=== PATIENT | male | born 1950 | race Two or more races ===

== ENCOUNTER → 2017-07-19 | Outpatient (CLI) | payer MEDICARE, BC ==
[~2017-07-19] MED LIST: AMBIEN10 MG PO; AMOXICILLIN; DOXAZOSIN MESYLA4 MG PO; METFORMIN HCL500 MG PO; RAPAFLO8 MG PO; TOVIAZ8 MG PO
--- NOTE | 2017-07-19 18:11 | Diagnostic Imaging Report ---
TECHNIQUE: Magnetic resonance imaging of the LEFT KNEE was performed WITHOUT injected contrast. HISTORY: Pain, twisted COMPARISON: MRI of the left knee February 19, 2013 FINDINGS: LIGAMENTS AND TENDONS: ACL: Severe intrasubstance degeneration with mild laxity. PCL: Intact Collateral ligaments: Intact Iliotibial band: Unremarkable Popliteal tendon: Intact Extensor mechanism: Intact JOINT: Menisci: Medial: Mildly increased degenerative tearing and attenuation of the body and posterior horn. Persistent peripheral extrusion of the body. Lateral: Mildly increased degenerative tearing and attenuation of the anterior horn and free margin of the body with associated peripheral extrusion. Articular Cartilage: Medial Compartment: Increased full-thickness erosion of the weightbearing cartilage. Lateral Compartment: Increased erosion of the weightbearing cartilage, now with full-thickness portions. Patellofemoral Compartment: Low to intermediate grade erosion. Joint Fluid: Synovitis with large associated joint effusion. BONES: No focal or infiltrative bone marrow replacing abnormality. No acute fracture. SOFT TISSUES: Otherwise, unremarkable. IMPRESSION: 1. Mildly progressed tricompartmental degenerative changes, including degenerative tearing of the menisci. 2. Remote partial anterior cruciate ligament tear with associated prominent intrasubstance degeneration, relatively stable. Signed by: Dr. Maxwell Paulson D.O., M.M.M. on 07/19/2017 6:07 PM
--- NOTE | 2017-07-19 18:31 | Diagnostic Imaging Report ---
PROCEDURE:KNEE THREE VIEWS BILATERAL COMPARISON:None. INDICATIONS:BILATERAL KNEE PAIN FINDINGS: Normal mineralization. Status post total right knee replacement, with intact hardware, which show satisfactory alignment. No lytic or blastic lesions. No suprapatellar effusion. 8mm peripherally calcified structure in the soft tissues above the quadriceps tendon, only seen in the lateral view, which may represent a phlebolith versus sequela of prior injury/trauma CONCLUSION: No acute abnormalities. Intact hardware and satisfactory alignment Broderick Chamorro M.D. Dictated by: Broderick Chamorro M.D. on 07/19/2017 at 18:30 Electronically approved by: Broderick Chamorro M.D. on 07/19/2017 at 18:30
== END ==
LOC: MRI 16:59
PROVIDERS: ATTEND Internal Medicine
DX: S83.242A Other tear of medial meniscus, current injury, left knee, initial encounter (principal)

== ENCOUNTER 2017-08-23 13:30 | Outpatient (RCR) | payer MEDICARE, BC | END 2017-09-01 | LOC: PT 13:30 | PROVIDERS: ATTEND Internal Medicine | DX: M17.0 Bilateral primary osteoarthritis of knee (principal); M54.5 Low back pain | CPT/HCPCS: 97010; 97110 ×4; 97112; 97139; 97140 ×2; 97162; G0283; G8978; G8979 ==

== ENCOUNTER → 2017-10-01 | Outpatient (RCR) | payer MEDICARE, BC | LOC: PT 10:59 | PROVIDERS: ATTEND Orthopaedic Surgery | DX: Z96.652 Presence of left artificial knee joint (principal); M25.562 Pain in left knee; M17.0 Bilateral primary osteoarthritis of knee | CPT/HCPCS: 97140; 97164; G8978; G8979 ==

== ENCOUNTER 2017-10-30 15:30 | Outpatient (RCR) | payer MEDICARE, BC | END 2017-11-01 | LOC: PT 15:30 | PROVIDERS: ATTEND Orthopaedic Surgery | DX: Z96.652 Presence of left artificial knee joint (principal); Z47.1 Aftercare following joint replacement surgery; M17.12 Unilateral primary osteoarthritis, left knee; M25.562 Pain in left knee; M25.462 Effusion, left knee; M25.662 Stiffness of left knee, not elsewhere classified; R53.1 Weakness; R26.89 Other abnormalities of gait and mobility; R26.81 Unsteadiness on feet | CPT/HCPCS: 97139 ==

== ENCOUNTER 2017-11-06 15:45 | Outpatient (RCR) | payer MEDICARE, BC | END 2017-12-01 | LOC: PT 15:45 | PROVIDERS: ATTEND Orthopaedic Surgery | DX: Z96.652 Presence of left artificial knee joint (principal); Z47.1 Aftercare following joint replacement surgery; M17.12 Unilateral primary osteoarthritis, left knee; M25.562 Pain in left knee; M25.662 Stiffness of left knee, not elsewhere classified; M25.462 Effusion, left knee; R60.9 Edema, unspecified; R26.89 Other abnormalities of gait and mobility; R53.1 Weakness | CPT/HCPCS: 97110 ×3; 97112; 97139; G0283; G8978; G8979 ==

== ENCOUNTER → 2018-01-01 | Outpatient (RCR) | payer MEDICARE, BC | LOC: PT 15:39 | PROVIDERS: ATTEND Orthopaedic Surgery | DX: Z96.652 Presence of left artificial knee joint (principal); Z47.1 Aftercare following joint replacement surgery; M17.12 Unilateral primary osteoarthritis, left knee; M25.562 Pain in left knee; M25.662 Stiffness of left knee, not elsewhere classified; R53.1 Weakness; R26.81 Unsteadiness on feet | CPT/HCPCS: 97139 ==

== ENCOUNTER 2018-01-24 15:30 | Outpatient (RCR) | payer MEDICARE, BC | END 2018-02-01 | LOC: PT 15:30 | PROVIDERS: ATTEND Orthopaedic Surgery | DX: Z96.652 Presence of left artificial knee joint (principal); Z47.1 Aftercare following joint replacement surgery; M17.12 Unilateral primary osteoarthritis, left knee; M25.562 Pain in left knee; M25.662 Stiffness of left knee, not elsewhere classified; M25.462 Effusion, left knee; R53.1 Weakness; R26.81 Unsteadiness on feet | CPT/HCPCS: 97110 ×3; 97112 ×2; G8978; G8979 ==

== ENCOUNTER 2018-02-26 16:00 | Outpatient (RCR) | payer MEDICARE, BC | END 2018-03-03 | LOC: PT 16:00 | PROVIDERS: ATTEND Orthopaedic Surgery | DX: Z96.652 Presence of left artificial knee joint (principal); Z47.1 Aftercare following joint replacement surgery; M17.12 Unilateral primary osteoarthritis, left knee; M25.562 Pain in left knee; M25.462 Effusion, left knee; M25.662 Stiffness of left knee, not elsewhere classified; R53.1 Weakness; R26.81 Unsteadiness on feet | CPT/HCPCS: 97110; 97112; 97140; G8978; G8979 ==

== ENCOUNTER 2018-03-21 15:31 | Outpatient (RCR) | payer MEDICARE, BC | END 2018-04-03 | LOC: PT 15:31 | PROVIDERS: ATTEND Internal Medicine | DX: Z96.652 Presence of left artificial knee joint (principal); Z47.1 Aftercare following joint replacement surgery; M17.12 Unilateral primary osteoarthritis, left knee; M25.562 Pain in left knee; M25.462 Effusion, left knee; M25.662 Stiffness of left knee, not elsewhere classified; R53.1 Weakness; R26.81 Unsteadiness on feet ==

== ENCOUNTER 2020-12-24 15:00 | Outpatient (RCR) | payer MEDICARE, BC | END 2021-01-01 | LOC: PT 15:00 | PROVIDERS: ATTEND Internal Medicine | DX: R26.9 Unspecified abnormalities of gait and mobility (principal); W19.XXXA Unspecified fall, initial encounter ==

== ENCOUNTER → 2021-02-01 | Outpatient (RCR) | payer MEDICARE, BC | LOC: PT 01-04 15:11 | PROVIDERS: ATTEND Internal Medicine | DX: M62.81 Muscle weakness (generalized) (principal); M25.552 Pain in left hip; M25.551 Pain in right hip; R26.89 Other abnormalities of gait and mobility ==

== ENCOUNTER 2021-02-17 15:34 | Outpatient (RCR) | payer MEDICARE, BC | END 2021-03-03 | LOC: PT 15:34 | PROVIDERS: ATTEND Internal Medicine | DX: R53.1 Weakness (principal); M25.552 Pain in left hip; M25.551 Pain in right hip; M25.562 Pain in left knee; Z91.81 History of falling ==

== ENCOUNTER 2021-03-30 14:00 | Outpatient (RCR) | payer MEDICARE, BC | END 2021-04-03 | LOC: PT 14:00 | PROVIDERS: ATTEND Internal Medicine | DX: M62.81 Muscle weakness (generalized) (principal); M25.852 Other specified joint disorders, left hip; M25.851 Other specified joint disorders, right hip; M25.862 Other specified joint disorders, left knee; R26.9 Unspecified abnormalities of gait and mobility ==

== ENCOUNTER 2021-04-21 15:00 | Outpatient (RCR) | payer MEDICARE, BC | END 2021-05-03 | LOC: PT 15:00 | PROVIDERS: ATTEND Internal Medicine | DX: M25.852 Other specified joint disorders, left hip (principal); M25.851 Other specified joint disorders, right hip; M25.862 Other specified joint disorders, left knee; R26.9 Unspecified abnormalities of gait and mobility; M62.81 Muscle weakness (generalized) ==

== ENCOUNTER 2021-05-17 16:01 | Outpatient (RCR) | payer MEDICARE, BC | END 2021-06-03 | LOC: PT 16:01 | PROVIDERS: ATTEND Internal Medicine | DX: M53.2X7 Spinal instabilities, lumbosacral region (principal); R53.1 Weakness; M76.31 Iliotibial band syndrome, right leg; R26.81 Unsteadiness on feet; R26.9 Unspecified abnormalities of gait and mobility ==

== ENCOUNTER 2023-03-23 09:59 | Outpatient (RCR) | payer MEDICARE, BC | END 2023-04-03 | LOC: PT 09:59 | PROVIDERS: ATTEND Internal Medicine | DX: M76.31 Iliotibial band syndrome, right leg (principal); M53.2X7 Spinal instabilities, lumbosacral region; M53.3 Sacrococcygeal disorders, not elsewhere classified; R26.2 Difficulty in walking, not elsewhere classified; R53.1 Weakness; Z91.81 History of falling ==

== ENCOUNTER 2023-04-05 10:52 | Outpatient (RCR) | payer MEDICARE, BC | END 2023-05-03 | LOC: PT 10:52 | PROVIDERS: ATTEND Internal Medicine | DX: R26.2 Difficulty in walking, not elsewhere classified (principal); R53.1 Weakness; M76.31 Iliotibial band syndrome, right leg; M53.2X7 Spinal instabilities, lumbosacral region; M53.3 Sacrococcygeal disorders, not elsewhere classified; Z91.81 History of falling ==

== ENCOUNTER 2023-11-20 10:38 | Outpatient (RCR) | payer MEDICARE, BC | END 2023-12-02 | LOC: PT 10:38 | PROVIDERS: ATTEND Orthopaedic Surgery Hand Surgery | DX: M19.011 Primary osteoarthritis, right shoulder (principal); M25.511 Pain in right shoulder ==

== ENCOUNTER 2023-12-24 11:00 | Outpatient (RCR) | payer MEDICARE, BC | END 2024-01-02 | LOC: PT 11:00 | PROVIDERS: ATTEND Orthopaedic Surgery Hand Surgery | DX: M25.511 Pain in right shoulder (principal); M19.011 Primary osteoarthritis, right shoulder; M75.01 Adhesive capsulitis of right shoulder ==

== ENCOUNTER 2024-02-01 11:00 | Outpatient (RCR) | payer MEDICARE, BC | END 2024-02-02 | LOC: PT 11:00 | PROVIDERS: ATTEND Orthopaedic Surgery Hand Surgery | DX: M25.511 Pain in right shoulder (principal); M19.011 Primary osteoarthritis, right shoulder; M75.41 Impingement syndrome of right shoulder ==

== ENCOUNTER 2024-02-20 11:00 | Outpatient (RCR) | payer MEDICARE, BC | END 2024-03-03 | LOC: PT 11:00 | PROVIDERS: ATTEND Orthopaedic Surgery Hand Surgery | DX: M19.011 Primary osteoarthritis, right shoulder (principal); M25.511 Pain in right shoulder; M75.01 Adhesive capsulitis of right shoulder ==

== ENCOUNTER 2024-04-01 11:00 | Outpatient (RCR) | payer BC, MEDICARE | END 2024-04-03 | LOC: PT 11:00 | PROVIDERS: ATTEND Orthopaedic Surgery Hand Surgery | DX: M19.011 Primary osteoarthritis, right shoulder (principal); M75.01 Adhesive capsulitis of right shoulder; M25.511 Pain in right shoulder ==

== ENCOUNTER 2024-04-17 15:00 | Outpatient (RCR) | payer MEDICARE, BC | END 2024-05-03 | LOC: PT 15:00 | PROVIDERS: ATTEND Orthopaedic Surgery Hand Surgery | DX: M19.011 Primary osteoarthritis, right shoulder (principal); M75.01 Adhesive capsulitis of right shoulder; M25.511 Pain in right shoulder ==

== ENCOUNTER → 2024-06-03 | Outpatient (RCR) | payer MEDICARE, BC | LOC: PT 05-12 13:32 | PROVIDERS: ATTEND Orthopaedic Surgery Hand Surgery | DX: M75.01 Adhesive capsulitis of right shoulder (principal); M19.011 Primary osteoarthritis, right shoulder; M25.511 Pain in right shoulder ==

== ENCOUNTER → 2024-07-04 | Outpatient (RCR) | payer MEDICARE, BC | LOC: PT 11:26 | PROVIDERS: ATTEND Orthopaedic Surgery Hand Surgery | DX: M75.01 Adhesive capsulitis of right shoulder (principal); M19.011 Primary osteoarthritis, right shoulder; M25.511 Pain in right shoulder ==

== ENCOUNTER 2024-07-18 11:00 | Outpatient (RCR) | payer MEDICARE, BC | END 2024-08-01 | LOC: PT 11:00 | PROVIDERS: ATTEND Orthopaedic Surgery Hand Surgery | DX: M75.01 Adhesive capsulitis of right shoulder (principal); M19.011 Primary osteoarthritis, right shoulder; M25.511 Pain in right shoulder ==

== ENCOUNTER 2024-08-29 13:10 | Outpatient (RCR) | payer MEDICARE, BC | END 2024-09-01 | LOC: PT 13:10 | PROVIDERS: ATTEND Orthopaedic Surgery Hand Surgery | DX: M75.01 Adhesive capsulitis of right shoulder (principal); M19.011 Primary osteoarthritis, right shoulder; M25.511 Pain in right shoulder ==

== ENCOUNTER → 2024-10-22 | Day surgery (SDC) | payer MEDICARE, BC ==
[2024-10-17 10:59] LABS: BASOPHILS # (AUTO) 0.1 (0.0-0.1); BASOPHILS % 0.8 % (0.0-1.0); EOSINOPHILS # (AUTO) 0.1 (0.0-0.4); EOSINOPHILS % 1.6 % (0.0-6.0); HEMATOCRIT 39.8 % (38.2-49.6); HEMOGLOBIN 13.3 g/dL (14.0-18.0); LYMPHOCYTES # (AUTO) 2.7 (1.0-3.2); LYMPHOCYTES % 44.2 % (18.0-39.1); MEAN CORPUSCULAR HEMOGLOBIN 30.9 pg (28-32); MEAN CORPUSCULAR HGB CONC 33.4 g/dL (31-35); MEAN CORPUSCULAR VOLUME 92.3 fL (81-99); MONOCYTES # (AUTO) 0.6 (0.2-0.8); MONOCYTES % 9.4 % (4.4-11.3); NEUTROPHILS # (AUTO) 2.7 (2.1-6.9); NEUTROPHILS % 43.7 % (38.7-80.0); PLATELET COUNT 195 x10e3/uL (140-360); RED BLOOD COUNT 4.31 x10e6/uL (4.3-5.7); RED CELL DISTRIBUTION WIDTH 13.6 % (11.7-14.4); WHITE BLOOD COUNT 6.08 x10e3/uL (4.8-10.8)
[2024-10-17 11:23] LABS: ANION GAP 15.7 mmol/L (8-16); CALCIUM 9.4 mg/dL (8.4-10.2); CREATININE, SERUM 0.88 mg/dL (0.72-1.25); POTASSIUM 4.7 mmol/L (3.5-5.1)
[~2024-10-22] MED LIST changes: +ACETAMINOPHEN 1000 MG/100 ML 100 ML IV ONE; +CRESTOR40 MG PO; +DEXAMETHASONE SOD PHOS INJ 4 MG/ML SDV ONE; +EPHEDRINE SULFATE INJ 50 MG/ML VIAL ONE; +FENTANYL CITRATE/PF 100MCG/2 ML INJ ONE; +KETOROLAC TROMETHAMINE 30 MG/ML VIAL ONE; +MEROPENEM 1 GM VIAL ONE; +METOPROLOL SUCC25 MG PO; +ONDANSETRON HCL INJ 2MG/ML 2ML 2 MG/ML VIAL ONE; +OZEMPIC1 MG/0.71; +PHENYLEPHRINE HCL 1% 10 MG/ML VIAL ONE; +PLAVIX75 MG PO; +PROPOFOL IV EMULSION 10 MG/ML 20 ML VIAL ONE; +ROCURONIUM BROMIDE 1 ML IV ONE; +SEVOFLURANE INHAL SOLN 250 ML PEN BTL ONE; +SODIUM CHLORIDE 0.9% 100 ML ONE; +SODIUM CHLORIDE 0.9% INJ 10 ML VIAL ONE; +SUCCINYLCHOLINE CHLORIDE 20 MG/ML 10ML VIAL ONE; +SUGAMMADEX SODIUM 200 MG/2 ML VIAL IV ONE; +ZETIA10 MG PO
[2024-10-22] MEDS: GENTAMICIN 80MG/NS 100 ML 200 ML IV ONE (09:21)
[2024-10-22] MEDS: CLINDAMYCIN 600MG / 50ML 50 ML IV ONE (09:22)
[2024-10-22] MEDS: SODIUM CHLORIDE 0.9% 1000ML 1,000 ML ONE (09:22)
[2024-10-22 10:14] LABS: ANION GAP 11.8 mmol/L (8-16); CREATININE, SERUM 0.79 mg/dL (0.72-1.25); POTASSIUM 3.8 mmol/L (3.5-5.1)
[2024-10-22 11:17] VITALS: TEMP 97.3
[2024-10-22 14:00] VITALS: BP 131/73; PULSE 83; RESP 16; O2SAT 98
== END | disposition home or self-care (01) ==
LOC: OR 08:12
PROVIDERS: ATTEND Urology
DX: N39.41 Urge incontinence (principal); N32.81 Overactive bladder; N39.0 Urinary tract infection, site not specified; N40.0 Benign prostatic hyperplasia without lower urinary tract symptoms; I25.10 Atherosclerotic heart disease of native coronary artery without angina pectoris; K21.9 Gastro-esophageal reflux disease without esophagitis; E11.9 Type 2 diabetes mellitus without complications; E66.01 Morbid (severe) obesity due to excess calories; Z88.8 Allergy status to other drugs, medicaments and biological substances; Z01.810 Encounter for preprocedural cardiovascular examination; Z01.812 Encounter for preprocedural laboratory examination; Z79.02 Long term (current) use of antithrombotics/antiplatelets; Z79.84 Long term (current) use of oral hypoglycemic drugs; Z79.85 Long-term (current) use of injectable non-insulin antidiabetic drugs; Z79.899 Other long term (current) drug therapy; Z95.5 Presence of coronary angioplasty implant and graft
CPT/HCPCS: 36415 ×2; 64581; 64590; 74420; 80048 ×2; 85025; 93005; 95972; C1767; C1778; C1787; J0131; J0330; J1100; J1580; J1885; J2185; J2371; J2405; J2704; J3010; J7030; J7050

== ENCOUNTER → 2024-12-11 | Outpatient (REF) | payer MEDICARE, BC ==
[~2024-12-11] MED LIST changes: -ACETAMINOPHEN 1000 MG/100 ML 100 ML IV ONE; -DEXAMETHASONE SOD PHOS INJ 4 MG/ML SDV ONE; -EPHEDRINE SULFATE INJ 50 MG/ML VIAL ONE; -FENTANYL CITRATE/PF 100MCG/2 ML INJ ONE; -KETOROLAC TROMETHAMINE 30 MG/ML VIAL ONE; -MEROPENEM 1 GM VIAL ONE; -ONDANSETRON HCL INJ 2MG/ML 2ML 2 MG/ML VIAL ONE; -PHENYLEPHRINE HCL 1% 10 MG/ML VIAL ONE; -PROPOFOL IV EMULSION 10 MG/ML 20 ML VIAL ONE; -ROCURONIUM BROMIDE 1 ML IV ONE; -SEVOFLURANE INHAL SOLN 250 ML PEN BTL ONE; -SODIUM CHLORIDE 0.9% 100 ML ONE; -SODIUM CHLORIDE 0.9% INJ 10 ML VIAL ONE; -SUCCINYLCHOLINE CHLORIDE 20 MG/ML 10ML VIAL ONE; -SUGAMMADEX SODIUM 200 MG/2 ML VIAL IV ONE
== END ==
LOC: RAD 11:55
PROVIDERS: ATTEND Urology
DX: Z45.42 Encounter for adjustment and management of neurostimulator (principal)
CPT/HCPCS: 72220